=== PATIENT | female | born 1970 | race Caucasian/White ===

== ENCOUNTER 2017-01-09 21:49 | Inpatient (IN) | payer BC ==
[2017-01-09] MEDS ORDERED: MORPHINE SULFATE 4 MG INJ IV ONE ×2 (22:04→23:24)
[2017-01-09] MEDS ORDERED: Sodium Chloride 0.9% 1000 ML 1,000 ML IV STA ×3 (22:04→23:24)
[2017-01-09] MEDS ORDERED: Zofran 4 MG/2 ML VIAL IV ONE (22:04)
[2017-01-09] MEDS ORDERED: Zofran 4 MG/2 ML VIAL ONE (22:08)
[2017-01-09] MEDS ORDERED: MORPHINE SULFATE 4 MG INJ ONE ×2 (22:09→23:31)
[2017-01-09] MEDS ORDERED: Sodium Chloride 0.9% 1000 ML 1,000 ML ONE ×2 (22:09→23:09)
--- NOTE | 2017-01-09 22:26 | ERPHSYRPT ---
- History of Present Illness Time Seen by Provider: 01/09/17 22:23 Historian: patient, family Exam Limitations: no limitations Patient Subjective Stated Complaint: Patient ate dinner and began having stomach pain and vomiting. Pain became so bad that she came to the ER. Triage Nursing Assessment: Patient alert and oriented. Came in on a wheelchair. Patient having severe abdominal pain. Has vomited and now has a large mass, lump above her umbilicus. Unable to hear bowel sounds. Physician History: 46-year-old female ate dinner at around 5 PM and then afterwards he started having severe nausea and vomiting followed by swelling in periumbilical area associated with severe periumbilical area, abdominal pain. Patient has never this type of symptoms before. She did not have any previous abdominal surgery except for laparoscopic gallbladder removal. She denies any fever, chills or diarrhea. 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 Timing/Duration: today Quality: cramping Abdominal Pain Onset Location: periumbilical Pain Radiation: no radiation Severity of Pain-Max: severe Severity of Pain-Current: severe Modifying Factors: Improves With: nothing Associated Symptoms: nausea, vomiting Previous symptoms: no prior history Allergies/Adverse Reactions: No Known Drug Allergies Allergy (Unverified 01/09/17 22:03) Immunizations Up to Date: Yes - Review of Systems Constitutional: No Fever, No Chills Eyes: No Symptoms Ears, Nose, & Throat: No Symptoms Respiratory: No Cough, No Dyspnea Cardiac: No Chest Pain, No Edema, No Syncope Abdominal/Gastrointestinal: Abdominal Pain, Nausea, Vomiting, No Diarrhea, No Constipation, No Hematemesis, No Hematochezia, No Melena, No Dysphagia, No Appetite Changes Genitourinary Symptoms: No Dysuria Musculoskeletal: No Back Pain, No Neck Pain Skin: No Rash Neurological: No Dizziness, No Focal Weakness, No Sensory Changes Psychological: No Symptoms Endocrine: No Symptoms All Other Systems: Reviewed and Negative - Past Medical History Pertinent Past Medical History: Yes ENT History: No Pertinent History Cardiac History: Hypertension Respiratory History: No Pertinent History Endocrine Medical History: No Pertinent History Musculoskeletal History: No Pertinent History GI Medical History: Gallbladder Disease History: No Pertinent History Psycho-Social History: No Pertinent History Female Reproductive Disorders: No Pertinent History - Past Surgical History Past Surgical History: Yes Neuro Surgical History: No Pertinent History Cardiac: No Pertinent History Respiratory: No Pertinent History Gastrointestinal: Cholecystectomy Genitourinary: No Pertinent History Musculoskeletal: No Pertinent History Female Surgical History: No Pertinent History - Social History Smoking Status: Never smoker Exposure to second hand smoke: No Drug Use: none Patient Lives Alone: Yes - Nursing Vital Signs Nursing Vital Signs: Initial Vital Signs Temperature 97.7 F 01/09/17 22:07 Pulse Rate 91 H 01/09/17 22:07 Blood Pressure 186/119 01/09/17 22:07 Pain Scale Pain Intensity 9 - Physical Exam General Appearance: no apparent distress, alert Eye Exam: PERRL/EOMI, eyes nml inspection Ears, Nose, Throat Exam: normal ENT inspection, pharynx normal, moist mucous membranes Neck Exam: normal inspection, non-tender, supple, full range of motion Respiratory Exam: normal breath sounds, lungs clear, No respiratory distress Cardiovascular Exam: regular rate/rhythm, normal heart sounds Gastrointestinal/Abdomen Exam: tenderness (periumbilical area), mass ( periumbilical area), guarding, rebound, hernia, No pulsatile mass, No hepatomegaly, No organomegaly, No splenomegaly, No bruit, No other Pelvic Exam: not done Back Exam: normal inspection, normal range of motion, No CVA tenderness, No vertebral tenderness Extremity Exam: normal inspection, normal range of motion, pelvis stable Neurologic Exam: alert, oriented x 3, cooperative, normal mood/affect, nml cerebellar function, sensation nml, No motor deficits Skin Exam: normal color, warm, dry - Course Nursing assessment & vital signs reviewed: Yes - CT Exams Abdomen/Pelvis CT Interpretation: Tele-radiologist Report (periumbilical hernis with small bowel loop) Ordered Tests: Active Orders 24 hr Category Date Time Status IV Insertion STAT Care 01/09/17 22:04 Active ABDOMEN AND PELVIS W/0 CONTRAS [CT] Stat Exams 01/09/17 22:04 Taken AMYLASE Stat Lab 01/09/17 22:04 Completed CBC W DIFF Stat Lab 01/09/17 22:04 Completed CMP Stat Lab 01/09/17 22:04 Completed CULTURE,URINE Stat Lab 01/09/17 23:21 Received LIPASE Stat Lab 01/09/17 22:04 Completed Lactic Acid Stat Lab 01/09/17 22:46 Results UA W/ MICROSCOPIC Stat Lab 01/09/17 23:21 Completed Urine Triage Profile Stat Lab 01/09/17 23:21 Received Medication Summary Generic Name Dose Route Start Last Admin Trade Name Amaury PRN Reason Stop Dose Admin Sodium Chloride 1,000 mls @ 999 mls/hr 01/09/17 22:56 01/09/17 23:11 Sodium Chloride 0.9% 1000 Ml IV 01/09/17 23:56 999 mls/hr .Q1H1M STA Administration Sodium Chloride 1,000 mls @ 999 mls/hr 01/09/17 23:24 Sodium Chloride 0.9% 1000 Ml IV 01/10/17 00:24 .Q1H1M STA Discontinued Medications Generic Name Dose Route Start Last Admin Trade Name Amaury PRN Reason Stop Dose Admin Cefazolin Sodium Confirm 01/09/17 22:59 Kefzol 1 Gm Administered 01/09/17 23:00 Dose 2 g .ROUTE .STK-MED ONE Sodium Chloride 1,000 mls @ 999 mls/hr 01/09/17 22:04 01/09/17 22:14 Sodium Chloride 0.9% 1000 Ml IV 01/09/17 23:04 999 mls/hr .Q1H1M STA Administration Sodium Chloride Confirm 01/09/17 22:09 Sodium Chloride 0.9% 1000 Ml Administered 01/09/17 22:10 Dose 1,000 mls @ ud .ROUTE .STK-MED ONE Cefazolin Sodium/Dextrose 2 gm in 50 mls @ 100 mls/hr 01/09/17 22:50 23:10 Cefazolin 2 Gm-D5w Bag IV 01/09/17 23:19 100 mls/hr STAT STA Administration Dextrose Confirm 01/09/17 23:00 D5w 100ml Mini Bag 100 Ml Administered 01/09/17 23:01 Dose 100 mls @ ud IV .STK-MED ONE Sodium Chloride Confirm 01/09/17 23:09 Sodium Chloride 0.9% 1000 Ml Administered 01/09/17 23:10 Dose 1,000 mls @ ud .ROUTE .STK-MED ONE Morphine Sulfate 4 mg 01/09/17 22:04 01/09/17 22:13 Morphine Sulfate 4 Mg Inj IV 01/09/17 22:05 4 mg STAT ONE Administration Morphine Sulfate Confirm 01/09/17 22:09 Morphine Sulfate 4 Mg Inj Administered 01/09/17 22:10 Dose 4 mg .ROUTE .STK-MED ONE Morphine Sulfate 4 mg 01/09/17 23:24 01/09/17 23:32 Morphine Sulfate 4 Mg Inj IV 01/09/17 23:25 4 mg STAT ONE Administration Morphine Sulfate Confirm 01/09/17 23:31 Morphine Sulfate 4 Mg Inj Administered 01/09/17 23:32 Dose 4 mg .ROUTE .STK-MED ONE Ondansetron HCl 4 mg 01/09/17 22:04 01/09/17 22:14 Zofran 4 Mg/2 Ml Vial IV 01/09/17 22:05 4 mg STAT ONE Administration Ondansetron HCl Confirm 01/09/17 22:08 Zofran 4 Mg/2 Ml Vial Administered 01/09/17 22:09 Dose 4 mg .ROUTE .STK-MED ONE Lab/Rad Data: Laboratory Result Diagrams 01/09/17 22:04 01/09/17 22:04 Laboratory Results 01/09/17 01/09/17 01/09/17 Range/Units 23:21 22:46 22:04 WBC (4.0-10.5) K/mm3 RBC (4.1-5.4) M/mm3 Hgb (12.0-16.0) gm/dl Hct (35-47) % MCV (78-100) fl MCH (26-32) pg MCHC (32-36) g/dl RDW (11.5-14.0) % Plt Count (150-450) K/mm3 MPV (6-9.5) fl Gran % (36.0-66.0) % Lymphocytes % (24.0-44.0) % Monocytes % (0.0-12.0) % Eosinophils % (0.00-5.0) % Basophils % (0.0-0.4) % Basophils # (0-0.4) Sodium 139 (136-145) mEq/L Potassium 3.2 L (3.5-5.1) mEq/L Chloride 103 (98-107) mEq/L Carbon Dioxide 24.2 (21-32) mEq/L Anion Gap 15.2 H (5-15) MEQ/L BUN 12 (9-20) mg/dL Creatinine 0.77 (0.55-1.30) mg/dl Estimated GFR > 60 ML/MIN Glucose 155 H (70-110) MG/DL Lactic Acid 3.2 H (0.4-2.0) Calcium 8.7 (8.5-10.1) mg/dL Total Bilirubin 0.50 (0.2-1.0) mg/dL AST 14 L (15-37) U/L ALT 11 L (12-78) U/L Alkaline Phosphatase 78 (46-116) U/L Serum Total Protein 7.3 (6.4-8.2) gm/dL Albumin 3.7 (3.4-5.0) g/dL Amylase 47 (25-115) U/L Lipase 89 (73-393) U/L Ur Collection Type CLEAN CATCH Urine Color YELLOW (YELLOW) Urine Appearance CLEAR (CLEAR) Urine pH 8.0 (5-6) Ur Specific [place] 1.005 (1.005-1.025) Urine Protein TRACE (Negative) Urine Ketones MODERATE (NEGATIVE) Urine Blood TRACE NON-HEM (0-5) Julian/ul Urine Nitrite NEGATIVE (NEGATIVE) Urine Bilirubin NEGATIVE (NEGATIVE) Urine Urobilinogen NORMAL (0-1) mg/dL Ur Leukocyte Esterase TRACE (NEGATIVE) Urine Microscopic RBC 2-5 (0-2) /HPF Urine Microscopic WBC 5-10 (0-5) /HPF Ur Epithelial Cells MODERATE (FEW) /HPF Urine Bacteria FEW (NEGATIVE) /HPF Urine Culture Reflexed YES (NO) Urine Glucose 250 (NEGATIVE) mg/dL Specimen Received [id number] 01/09/17 Range/Units 22:04 WBC 11.5 H (4.0-10.5) K/mm3 RBC 4.19 (4.1-5.4) M/mm3 Hgb 12.2 (12.0-16.0) gm/dl Hct 37.1 (35-47) % MCV 88.5 (78-100) fl MCH 29.1 (26-32) pg MCHC 32.9 (32-36) g/dl RDW 14.2 H (11.5-14.0) % Plt Count 269 (150-450) K/mm3 MPV 10.3 H (6-9.5) fl Gran % 91.6 H (36.0-66.0) % Lymphocytes % 5.9 L (24.0-44.0) % Monocytes % 2.3 (0.0-12.0) % Eosinophils % 0.1 (0.00-5.0) % Basophils % 0.1 (0.0-0.4) % Basophils # 0.01 (0-0.4) Sodium (136-145) mEq/L Potassium (3.5-5.1) mEq/L Chloride (98-107) mEq/L Carbon Dioxide (21-32) mEq/L Anion Gap (5-15) MEQ/L BUN (9-20) mg/dL Creatinine (0.55-1.30) mg/dl Estimated GFR ML/MIN Glucose (70-110) MG/DL Lactic Acid (0.4-2.0) Calcium (8.5-10.1) mg/dL Total Bilirubin (0.2-1.0) mg/dL AST (15-37) U/L ALT (12-78) U/L Alkaline Phosphatase (46-116) U/L Serum Total Protein (6.4-8.2) gm/dL Albumin (3.4-5.0) g/dL Amylase (25-115) U/L Lipase (73-393) U/L Ur Collection Type Urine Color (YELLOW) Urine Appearance (CLEAR) Urine pH (5-6) Ur Specific [place] (1.005-1.025) Urine Protein (Negative) Urine Ketones (NEGATIVE) Urine Blood (0-5) Julian/ul Urine Nitrite (NEGATIVE) Urine Bilirubin (NEGATIVE) Urine Urobilinogen (0-1) mg/dL Ur Leukocyte Esterase (NEGATIVE) Urine Microscopic RBC (0-2) /HPF Urine Microscopic WBC (0-5) /HPF Ur Epithelial Cells (FEW) /HPF Urine Bacteria (NEGATIVE) /HPF Urine Culture Reflexed (NO) Urine Glucose (NEGATIVE) mg/dL Specimen Received - Progress Progress: unchanged Discussed with : Soila Will see patient in: hospital (full admit) Counseled pt/family regarding: lab results, diagnosis, need for follow-up, rad results - Departure Time of Disposition: 23:35 Departure Disposition: In-patient Admission Clinical Impression: Periumbilical hernia, Partial small bowel obstruction Condition: Fair Critical Care Time: Yes Critical Care Time(excluding separately billable procedures): 30-74 minutes Referrals: JANAK MANJARREZ [COURTESY STAFF] -
[2017-01-09 22:47] LABS: BASOPHIL % 0.1 % (0.0-0.4); Eosinophil % 0.1 % (0.00-5.0); Granulocytes % 91.6 % (36.0-66.0); Lymphocytes % 5.9 % (24.0-44.0); Mean Cell Volume 88.5 fl (78-100); Mean Corpuscular Hemoglobin 29.1 pg (26-32); Mean Platelet Volume 10.3 fl (6-9.5); Monocytes % 2.3 % (0.0-12.0); Platelet Count 269 K/mm3 (150-450); Red Blood Count 4.19 M/mm3 (4.1-5.4); Red Cell Distribution Width 14.2 % (11.5-14.0); White Blood Count 11.5 K/mm3 (4.0-10.5)
[2017-01-09] MEDS ORDERED: CEFAZOLIN 2 GM-D5W BAG** 2 GM/50 ML ML IV STA (22:50)
[2017-01-09 22:51] LABS: Lactic Acid 3.2 (0.4-2.0)
[2017-01-09] MEDS ORDERED: KEFZOL 1 GM ONE (22:59)
[2017-01-09] MEDS ORDERED: D5w 100ML Mini Bag 100 ML 100 ML IV ONE (23:00)
[2017-01-09 23:02] LABS: ALBUMIN 3.7 g/dL (3.4-5.0); ALKALINE PHOSPHATASE 78 U/L (46-116); ANION GAP 15.2 MEQ/L (5-15); BLOOD UREA NITROGEN 12 mg/dL (9-20); CHLORIDE 103 mEq/L (98-107); Carbon Dioxide 24.2 mEq/L (21-32); Glucose 155 MG/DL (70-110); LIPASE 89 U/L (73-393); Potassium 3.2 mEq/L (3.5-5.1); SGOT/AST 14 U/L (15-37); SGPT/ALT 11 U/L (12-78); SODIUM 139 mEq/L (136-145); Total Protein 7.3 gm/dL (6.4-8.2)
[2017-01-09 23:30] LABS: Bilirubin NEGATIVE (NEGATIVE); Blood TRACE NON-HEM Ery/ul (0-5); Collection Type CLEAN CATCH; Glucose 250 mg/dL (NEGATIVE); Leukocyte Esterase TRACE (NEGATIVE)
[2017-01-09 23:31] LABS: COMPLETE URINE MICROSCOPIC? YES
[2017-01-09 23:32] LABS: ADD URINE CULTURE? YES (NO); Bacteria FEW /HPF (NEGATIVE); Epithelial Cells MODERATE /HPF (FEW)
[2017-01-09] MEDS ORDERED: XYLOCAINE HCl Viscous ONE (23:53)
[2017-01-10] MEDS ORDERED: Sodium Chloride 0.9% 1000 ML 1,000 ML ONE (00:24)
[2017-01-10] MEDS ORDERED: MORPHINE SULFATE 4 MG INJ IV PRN (00:43)
[2017-01-10] MEDS ORDERED: Sodium Chloride 0.9% W/ 20 mEq KCl/LITER 1,000 ML IV SCH (00:43)
[2017-01-10] MEDS ORDERED: Morphine PCA 1 MG/ML 30 ML IV ONE (01:09)
[2017-01-10] MEDS: Morphine PCA 1 MG/ML 30 ML IV PRN (01:20)
[2017-01-10] MEDS: Zosyn 3.375GM/100 Ml D5W 3.375 GM/100 ML IVPB IV SCH ×4 (01:31→18:29)
[2017-01-10] MEDS ORDERED: KEFZOL 1 GM/50 ML PREMIX** 1 GM/50 ML IVPB IV ONE (02:10)
[2017-01-10] MEDS ORDERED: CEFAZOLIN 2 GM-D5W BAG** 2 GM/50 ML ML IV ONE (02:10)
[2017-01-10] MEDS ORDERED: Sensorcaine 0.25% 10 ML ONE (04:55)
[2017-01-10] MEDS ORDERED: CEFAZOLIN 2 GM-D5W BAG** 2 GM/50 ML ML IV SCH (05:00)
[2017-01-10] MEDS ORDERED: KEFZOL 1 GM/50 ML PREMIX** 1 GM/50 ML IVPB IV SCH (05:00)
[2017-01-10] MEDS ORDERED: Lactated Ringers 1,000 ML IV SCH (05:00)
[2017-01-10] MEDS ORDERED: POTASSIUM CHLORIDE 20 mEq IN WATER 100ML 200 ML IV ONE (05:17)
[2017-01-10] MEDS ORDERED: DIPRIVAN 200 MG/20 ML IV ONE (08:00)
[2017-01-10] MEDS ORDERED: SUBLIMAZE 250 MCG/5 ML IV ONE (08:00)
[2017-01-10] MEDS ORDERED: BRIDION 200MG/2ML IV ONE (08:00)
[2017-01-10] MEDS ORDERED: Decadron 4 MG INJ IV ONE (08:00)
[2017-01-10] MEDS ORDERED: Quelicin Fliptop 200 MG/10 ML IV ONE (08:00)
[2017-01-10] MEDS ORDERED: Zemuron 100 MG/10 ML IV ONE (08:00)
[2017-01-10] MEDS ORDERED: Versed 2 MG/2 ML Injection IV ONE (08:00)
[2017-01-10] MEDS ORDERED: Zofran 4 MG/2 ML VIAL IV ONE (08:00)
[2017-01-10 09:22] LABS: Mean Cell Volume 88.1 fl (78-100); Mean Corpuscular Hemoglobin 28.8 pg (26-32); Mean Platelet Volume 10.2 fl (6-9.5); Platelet Count 272 K/mm3 (150-450); Red Blood Count 4.44 M/mm3 (4.1-5.4); Red Cell Distribution Width 14.6 % (11.5-14.0)
--- NOTE | 2017-01-10 09:35 | XRAY ---
Indication: Periumbilical mass. Abdominal pain. Multiple contiguous axial images obtained through the abdomen and pelvis without contrast as ordered. Comparison: None Lung bases demonstrates minimal bibasilar dependent atelectasis. Heart is not enlarged. Noncontrasted stomach and bowel loops appear nonobstructed. There is a midline ventral hernia defect at the level of the umbilicus at least 2.6 cm in diameter. Omental fat and a loop of small bowel herniates. Herniated small bowel loop demonstrates mild fluid distention up to 2.6 cm, stranding, and small free fluid favoring incarceration. There is distal colonic bowel gas as well as scattered descending diverticulosis. Normal appendix. Previous cholecystectomy. Remaining liver, pancreas, spleen, adrenal glands, kidneys, ureters, bladder, uterus, and aorta appear unremarkable for noncontrasted exam. Osseous structures intact with mild degenerative changes throughout the spine and both hips. Impression: 1. Periumbilical ventral hernia with herniated omental fat and a incarcerated small bowel loop as detailed. No obstruction. 2. Colonic diverticulosis without diverticulitis. Comment: Preliminary interpretation was made by [facility]. No discrepancy. CTDI 28.13
[2017-01-10 09:38] LABS: BLOOD UREA NITROGEN 6 mg/dL (9-20); CHLORIDE 103 mEq/L (98-107); Carbon Dioxide 25.3 mEq/L (21-32); Glucose 151 MG/DL (70-110); Potassium 3.4 mEq/L (3.5-5.1); SODIUM 139 mEq/L (136-145)
[2017-01-10] MEDS ORDERED: Zofran 4 MG/2 ML VIAL IV PRN (10:04)
[2017-01-10 10:09] LABS: BAND 2 % (0.0-2.0); Platelet Estimate NORMAL (NORMAL); Total Cells Counted 100
[2017-01-10] MEDS: Maxzide-25MG Tablet PO SCH (11:16)
[2017-01-10] MEDS: D5W/0.45NS W/ 20mEq KCl 1000 ML 1,000 ML IV SCH ×2 (11:28→21:02)
[2017-01-10] MEDS ORDERED: LOPRESSOR 5 MG/5 ML INJECTION IV PRN (14:03)
--- NOTE | 2017-01-10 15:32 | CONS ---
CONSULT DATE: 01/10/17 HISTORY OF PRESENT ILLNESS: The patient is a 46 y/o female with past history of cholecystectomy in the past. Apparently at dinner and had some vomiting and pain. She presented to the Emergency Department. Did a CT scan. They called me around midnight or so. Had hernia with some incarcerated fat and some bowel loops. Leslie she would benefit from repair. Therefore, as I was only working on a couple of hours of sleep in a 48 hour period, it was felt that it would be safer to place an NG to decompress her bowel and repair the hernia within 5-6 hours than when I was called to allow the bowel to decompress as it was felt the hernia needed repaired and whether the bowel needed removed or not felt it likely would not be effected with much better results with a fresher surgeon and team. PAST MEDICAL HISTORY: Hypertension. PAST SURGICAL HISTORY: She had cholecystectomy. She denied any other surgeries. HOME MEDICATIONS: Medication prior to admission - Took some BP medication. She denied any blood thinner use. ALLERGIES: NKDA. FAMILY HISTORY: Heart disease and hypertension and some diabetes. SOCIAL HISTORY: No smoking or alcohol abuse. WBC was 11.5, Hgb 12.2, platelets 269,000. REVIEW OF SYSTEMS: 12 systems reviewed pertinent for as noted above. PHYSICAL EXAMINATION: GENERAL: No acute distress. HEENT: Sclerae nonicteric. NECK: No JVD. CHEST: Equal excursion. Nonlabored breathing. CVS: Regular rhythm and pulse. ABDOMEN: Soft. She has got a fullness mass consistent with incarcerated hernia in her lower epigastric area. No peritoneal signs. EXTREMITIES: No edema. NEURO: Alert, moving extremities symmetrically. No gross motor deficits noted. IMPRESSION: 1. INCARCERATED VENTRAL HERNIA. Feel the patient will benefit from repair, possible mesh, possible bowel resection pending operative findings. Risks and benefits explained in detail to the patient, but not limited to, bleeding; infection; risk of hematoma or seroma formation; risk of wound complications; risk of recurrent hernia; risk of superficial ingrown hair or suture reaction in the superficial skin incision; risk if the mesh became infected likely would need removed; general risk of anesthesia or sedation; risk of deep vein thrombosis, pulmonary embolism, or pneumonia; risk of ileus or obstruction; risk if bowel resection required risk of anastomotic complications, leak, fistula formation, abscess, possibly requiring other procedures or prolonged bowel rest; risk of renal insufficiency; and overall risk of recurrent hernia. She also understands that if the bowel is bad, may need to consider using a biologic mesh or no mesh if biologic not available pending operative findings and condition of bowel. She understands all of this, but not limited to. She agrees to the planned procedure. As I arrived before 5:00 AM, will proceed with repair incarcerated ventral hernia, possible mesh, possible bowel resection pending operative findings. She understands postoperative care is dependent on pain control and return of bowel function whether anastomosis necessary to be created or not. She also understands general risks of aches, pains, burning, or numbness possibly long-term or chronic in nature. Thank you for the consult.
--- NOTE | 2017-01-10 16:13 | CONS ---
HISTORY OF PRESENT ILLNESS: This is a 46 y/o patient who doesn't have a physician in the local area who presented to the Emergency Department with acute abdominal pain. It appears the Emergency Room doctor called the surgeons and she was taken to surgery this morning and I was asked for a medical consultation after she returned from her surgery. The patient reports that she had ate supper last night. She was camping at [facility] in the cabins with some friends. She is from [place], [place] and she developed acute abdominal pain with nausea and vomiting and was feeling weak and lightheaded and continued vomiting and belly pain and so she came to the Emergency Department. She had a CT scan done which was concerning for periumbilical ventral hernia with herniated omental fat and incarcerated small bowel loop. The patient reports she continued to have a lot of pain last night. Her pain is better after having surgery. Dr. Owens took her for emergent surgery for repair of incarcerated umbilical hernia. She reports her pain is currently controlled with the [employer]ICE [employer]INK[employer] HELPER. REVIEW OF SYSTEMS: She denied any fever. She reports she just hurt all over when she was vomiting. No dyspnea. She is overall feeling better now, but is asking when the NG tube can come out. PAST MEDICAL HISTORY: Hypertension. PAST SURGICAL HISTORY: Laparoscopic cholecystectomy. SOCIAL HISTORY: She is from [place], [place]. Denies any tobacco or alcohol. FAMILY HISTORY: Her mother is living and has asthma. Her father is living and has hypertension and some kind of heart problem, but no history of blockage or myocardial infarction. CURRENT MEDICATIONS: Triamterene hydrochlorothiazide 37.5/25 mg PO daily, Advil 400 mg PO q 4 h PRN. ALLERGIES: NKDA. PHYSICAL EXAMINATION: VITAL SIGNS: Temperature current 98.3, temperature maximum 98.3, heart rate 83-104, respiratory rate 18-24, BP 138-188/67-119, currently 138/67. GENERAL: The patient is lying bed a pleasant lady with an NG tube in place. No acute distress. CVS: She has a regular rate and rhythm. No murmurs, gallops, or rubs are appreciated. CHEST: Clear to auscultation when auscultated anteriorly. ABDOMEN: She has some bowel sounds. Her abdomen is in a binder. It looks like she has 2 drainage bulbs with serosanguinous drainage in them. Further abdominal exam was deferred. EXTREMITIES: No clubbing, cyanosis, or edema. SKIN: Warm, dry, and intact. LABORATORY DATA: On admission, her WBC was 11,500, repeat 17,000 with 92% neutrophils, 2% bands. Potassium 3.4, glucose 151. UA 5-10 WBC, [address] glucose. Urine tox negative. CT scan - Please see the radiologist's report. ASSESSMENT AND PLAN: 1. HYPERTENSION. Her home antihypertensive has been continued. Also, ordered something IV if she is unable to take the hydrochlorothiazide PO. 2. HYPOKALEMIA. She currently has 20 mEq of potassium chloride/liter in her IV fluids. Will continue with this. 3. HYPERGLYCEMIA. Will check an Hgb A1C. 4. ABDOMINAL PAIN. Per the surgeons.
[2017-01-11] MEDS: Zosyn 3.375GM/100 Ml D5W 3.375 GM/100 ML IVPB IV SCH ×5 (00:05→23:59)
[2017-01-11] MEDS: ENOXAPARIN SODIUM SQ SCH (00:08)
[2017-01-11] MEDS: Morphine PCA 1 MG/ML 30 ML IV PRN (05:08)
[2017-01-11] MEDS: D5W/0.45NS W/ 20mEq KCl 1000 ML 1,000 ML IV SCH ×3 (05:27→23:58)
[2017-01-11 06:00] LABS: Mean Cell Volume 89.9 fl (78-100); Mean Platelet Volume 10.6 fl (6-9.5); Platelet Count 263 K/mm3 (150-450); Red Blood Count 3.86 M/mm3 (4.1-5.4); Red Cell Distribution Width 14.9 % (11.5-14.0)
[2017-01-11 06:07] LABS: ANION GAP 10.7 MEQ/L (5-15); BLOOD UREA NITROGEN 8 mg/dL (9-20); CHLORIDE 106 mEq/L (98-107); Carbon Dioxide 26.7 mEq/L (21-32); Glucose 120 MG/DL (70-110); Potassium 3.2 mEq/L (3.5-5.1); SODIUM 140 mEq/L (136-145)
[2017-01-11] MEDS ORDERED: NON-FORMULARY ITEM (Triamterene/Hydrochlorothiazid [Triamterene-Hctz 37.5-25 Mg Cp] 1 EACH PO SCH (10:00)
[2017-01-11] MEDS: Maxzide-25MG Tablet PO SCH (11:34)
[2017-01-12] MEDS: ENOXAPARIN SODIUM SQ SCH
[2017-01-12 05:42] LABS: Mean Cell Volume 91.1 fl (78-100); Mean Corpuscular Hemoglobin 28.9 pg (26-32); Mean Platelet Volume 10.4 fl (6-9.5); Platelet Count 254 K/mm3 (150-450); Red Cell Distribution Width 14.9 % (11.5-14.0); White Blood Count 8.9 K/mm3 (4.0-10.5)
[2017-01-12] MEDS: Zosyn 3.375GM/100 Ml D5W 3.375 GM/100 ML IVPB IV SCH ×3 (06:55→17:29)
--- NOTE | 2017-01-12 08:06 | PCM.NOTE ---
Date and Time: 01/12/17 08 Subjective Assessment: Patient reports that she has started to pass gas. She has not received a dose of her maxide yet and has not needed the prn metoprolol ordered. When asked, she states she does not have dizziness or lightheadedness when she takes the blood pressure medication. - Review of Systems Constitutional: No Symptoms Eyes: No Symptoms Ears, Nose, & Throat: No Symptoms Respiratory: No Symptoms Cardiac: No Symptoms Abdominal/Gastrointestinal: Abdominal Pain, Other (passing gas) Genitourinary Symptoms: No Symptoms, Other (scott catheter removed yesterday) Objective Exam General Appearance: no apparent distress, alert, other ( at bedside) Neurologic Exam: alert, cooperative Skin Exam: normal color, warm, dry Respiratory Exam: normal breath sounds, lungs clear, No crackles/rales, No rhonchi, No wheezing Cardiovascular Exam: regular rate/rhythm, normal heart sounds, No murmur, No friction rub, No gallop Extremity Exam: other (no c/c/e) OBJECTIVE DATA Vital Signs: Vital Signs - 24 hr Temp Pulse Resp BP Pulse Ox 01/12/17 07:09 98.5 F 88 18 135/64 95 01/12/17 06:00 97 01/12/17 04:07 98.7 F 94 H 16 132/60 98 01/12/17 04:00 18 01/12/17 02:00 98 01/12/17 00:00 18 01/11/17 23:53 98.5 F 89 19 124/62 96 01/11/17 22:00 95 01/11/17 20:00 16 01/11/17 19:36 98.2 F 89 16 129/61 95 01/11/17 18:00 96 01/11/17 16:00 98.0 F 86 16 133/71 96 01/11/17 14:00 92 L 01/11/17 12:00 18 01/11/17 11:52 98.5 F 83 18 120/56 92 L 01/11/17 10:00 94 L Pain Assessment - Last Documented Pain Intensity 3 Pain Scale Used [facility] Intake and Output: Intake & Output 01/10/17 01/11/17 01/12/17 01/13/17 06:59 06:59 06:59 06:59 Intake Total 100 2078 3397 Output Total 0930 8780 2009 Balance -2156 418 1387 Weight 130.136 kg Lab Results: Lab Results-Last 24 Hours 01/12/17 Range/Units 05:05 WBC 8.9 (4.0-10.5) K/mm3 RBC 3.80 L (4.1-5.4) M/mm3 Hgb 11.0 L (12.0-16.0) gm/dl Hct 34.6 L (35-47) % MCV 91.1 (78-100) fl MCH 28.9 (26-32) pg MCHC 31.8 L (32-36) g/dl RDW 14.9 H (11.5-14.0) % Plt Count 254 (150-450) K/mm3 MPV 10.4 H (6-9.5) fl Assessment/Plan (1) Hypertension Current Visit: Yes Status: Acute Assessment & Plan: Will decrease dose of maxide to 1/2 tablet. She may be able to have this when her NG is clamped if they are able to do that today. Her blood pressures have been normal to high end of normal right now. Code(s): I10 - ESSENTIAL (PRIMARY) HYPERTENSION (2) Hyperglycemia Current Visit: Yes Status: Acute Assessment & Plan: Hgb A1C normal. Code(s): R73.9 - HYPERGLYCEMIA, UNSPECIFIED (3) Hypokalemia Current Visit: Yes Status: Acute Assessment & Plan: Check potassium today. If low, may need extra potassium. She has 20 meq/l in her IV fluids right now. Code(s): E87.6 - HYPOKALEMIA
[2017-01-12] MEDS: D5W/0.45NS W/ 20mEq KCl 1000 ML 1,000 ML IV SCH ×2 (09:56→20:28)
[2017-01-12] MEDS: Maxzide-25MG Tablet PO SCH (10:19)
--- NOTE | 2017-01-12 10:39 | OP ---
REDICTATION: SURGERY DATE/TIME: 01/10/2017 0526 PREOPERATIVE DIAGNOSIS: Incarcerated strangulated ventral hernia. POSTOPERATIVE DIAGNOSIS: Incarcerated strangulated ventral hernia with small segment of ischemic small bowel and devitalized omentum. PROCEDURES: 1) Segmental small bowel resection, primary reanastomosis. 2) Partial omentectomy. 3) Repair of strangulated ventral hernia with mesh. SURGEON: Dr. James Owens. ANESTHESIA: General. ESTIMATED BLOOD LOSS: Minimal. INDICATION: She had some pain. CT scan showed some small bowel omentum hernia. It was felt that she had obstructing incarcerated possibly strangulated hernia in need of repair. She had been discussed the risks and benefits of the procedure in detail but not limited to and consent had been obtained. DESCRIPTION OF PROCEDURE AND FINDINGS: The patient is taken to the operating room. General anesthesia was induced. Abdomen prepped and draped in usual sterile fashion. After official time out and no disagreement with planned procedure, a midline incision made in epigastrium just above the umbilical area. Dissection carried down through the large hernia sac. It was carefully freed down to the level of the fascia. In this lower epigastrium area she had previous surgery up in this area. Otherwise hernia sac was opened. She had a small segment of ischemic small bowel. It was felt that it was not safe to leave this in position. Therefore it was carefully transected proximally and distally to viable segment. Additionally, there was a large amount of omentum and there was also devitalized and this was carefully taken down with LigaSure device. The small bowel was transected with FITO stapler to proximal viable segment distal abdominal segment. The mesentery taken down with the LigaSure device. Once this ischemic small bowel was discarded the two viable sides were placed together and sealed with interrupted 3-0 PDS. Side to side staple anastomosis created with the end stump closed with TA stapler and then over sewn for hemostasis with 3-0 PDS. Mesenteric defect was also closed with 3-0 PDS in a tension free manner. Copious amount of irrigation had been irrigated clear. The bowel was allowed to be dropped back down into the abdomen. NG was left in position as she had been instructed. Otherwise the remainder of visible bowel appeared to be viable. There did not appear to be any other obvious evidence of adhesions or obstruction point. At this point there was a separate smaller umbilical hernia inferiorly this was connected to be able to repair this hernia all as one hernia. Incarcerated preperitoneal fat was discarded and from the umbilical tissue. The main low epigastric true ventral area from previous port incision. I do believe she had previous incision in that area. Either way she had this low epigastric hernia was the main hernia site. The thick walled hernia sac carefully taken down around the edge with LigaSure device. Good hemostasis noted. Fascial edges were cleared circumferentially around this area. Copious amount of irrigation irrigating until clear. There is no Biologic mesh available at this specific facility. As there had been no derian pus and given her extensive obesity it was felt that closing this with suture would almost certainly approaching 80-90% chance of hernia recurrence, it was felt it would be safer to risk the small risk of mesh infection possibly requiring removal as explained to the patient preoperatively to use Ventrilex ST mesh to greatly minimize the risk of recurrence as possible as there had been no derian pus or stool in the wound. The patient had understood if the mesh there is a risk of infection that might require removal. It was felt the benefit of reducing the overall risk of recurrence and trips back to the OR using the mesh would benefit using the mesh is much greater than the small risk of infection. Therefore a six 6 mesh was most appropriate size of mesh available. It was carefully soaked, inserted, secured. Sewn around the edges with 0 or #1 Prolene in tension-free manner. At this point the attenuated fascia was then closed over the top with interrupted 0 PDS in sequential fashion. Umbilical tissue had been tacked down inferiorly at the caudal aspect of the wound at the level of the fascia creating an inverted umbilicus with 3-0 Vicryl. Copious amount of irrigation irrigating until clear. ARI drain was left in subcu. Another ARI had been placed in the abdomen at the residual omentum had been laid over the top of the anastomosis. ARI drain had been laid away from direct communication under level with the fascia prior to placing the mesh. A second ARI was placed in subcu above the level of the fascia and below the skin level out the inferior stab wound and secured with PDS suture and placed to bulb suction. Again copious amount of irrigation irrigating until clear. Subcu closed with 3-0 Vicryl, skin closed with juli. Sterile dressing and abdominal binder obtained. The patient tolerated the procedure as well as possible. It was felt that this was the most appropriate treatment for her particular case given her high risk of recurrence given her obesity/ Findings discussed with the family out in the waiting area.
[2017-01-12] MEDS: NORCO 5/325 MG PO PRN (17:58)
[2017-01-13] MEDS: Zosyn 3.375GM/100 Ml D5W 3.375 GM/100 ML IVPB IV SCH ×3 (00:26→12:40)
[2017-01-13] MEDS: ENOXAPARIN SODIUM SQ SCH (00:26)
[2017-01-13] MEDS: D5W/0.45NS W/ 20mEq KCl 1000 ML 1,000 ML IV SCH (05:36)
[2017-01-13] MEDS: Morphine PCA 1 MG/ML 30 ML IV PRN ×2 (07:02→10:34)
[2017-01-13] MEDS: NORCO 5/325 MG PO PRN ×3 (07:42→16:34)
[2017-01-13] MEDS: Maxzide-25MG Tablet PO SCH (10:38)
[2017-01-13 11:59] VITALS: O2SAT 96
[2017-01-13 16:27] VITALS: BP 139/70; PULSE 77
--- NOTE | 2017-01-14 15:32 | DS ---
ADMISSION DIAGNOSIS: Strangulated incarcerated ventral hernia. DISCHARGE DIAGNOSIS: STRANGULATED INCARCERATED VENTRAL HERNIA. PROCEDURES: 1) Segmental small bowel resection primary reanastomosis. 2) Repair of strangulated incarcerated ventral hernia with mesh. HOSPITAL COURSE: Please see operative note, history and physical. The patient was admitted and underwent the ventral hernia repair. She had small segment of ischemic small bowel that was resected and reanastomosed. The wound stayed fairly clean. Given her weight it was felt that she would benefit from mesh repair. We did not have Biologic mesh available so the Ventralex coated ST mesh was used for repair as the next best option. The fascia closed over the top of it isolating away from the rest of the subcu. Subcu drain had been left in place. Her NG will able to be discontinued in a day or two. She is started on clear liquids and advanced her diet and tolerating full liquids. Moving her bowels, passing flatus. She had good pain control on pain medications. Ambulating well. The incision remained clean, dry and intact. ARI drain clear. ARI drain was removed. It was felt that she was ready to be discharged home and discharged home in good condition. She is to follow up in the office next week for staple removal. She is from out of town. She may decide to follow up with her family doctor and a local surgeon otherwise will have her follow up with local next week.
== END 2017-01-13 18:30 | disposition home or self-care (01) | DRG 999 ==
LOC: ED 21:49 → MED SURG 01-10 00:28
PROVIDERS: ADMIT Surgery; ATTEND Internal Medicine
PROC: 0WUF0JZ Supplement Abdominal Wall with Synthetic Substitute, Open Approach (ICD-10-PCS; principal; 2017-01-10)
PROC: 0DT80ZZ Resection of Small Intestine, Open Approach (ICD-10-PCS; 2017-01-10)
PROC: 0DBU0ZZ Excision of Omentum, Open Approach (ICD-10-PCS; 2017-01-10)
DX: K43.9 Ventral hernia without obstruction or gangrene (principal); I10 Essential (primary) hypertension; E87.6 Hypokalemia; R73.9 Hyperglycemia, unspecified
CPT/HCPCS: 00790; 00832; 36000; 36415; 51702; 74176; 80048; 80053; 80307; 81000; 82150; 83036; 83605; 83690; 84132; 85025; 85027; 87086; 96360; 96361; 96365; 96374; 96375; 96376; 99285; J0330; J0690; J1100; J1650; J2250; J2270; J2405; J2543; J2704; J3010; J3480; L0625; A9270-GY